=== PATIENT | male | born 1995 | race Caucasian/White ===

== ENCOUNTER 2023-05-27 04:32 | Emergency (ER) | payer OTHER ==
[2023-05-27] MEDS ORDERED: KETOROLAC 30 MG/ML VIAL IVP STA (04:50)
[2023-05-27] MEDS ORDERED: SODIUM CHLORIDE 0.9% 1,000 ML IV STA (04:50)
[2023-05-27] MEDS ORDERED: ONDANSETRON 4 MG/2 ML VIAL IVP STA (04:50)
[2023-05-27] MEDS ORDERED: MORPHINE 2 MG/ML CARPUJECT IVP STA (04:56)
[2023-05-27 05:28] LABS: BASOPHILS # (AUTO) 0.1 10^3/uL (0.0-0.1); BASOPHILS % (AUTO) 1.5 %; EOSINOPHILS # (AUTO) 0.4 10^3/uL (0.0-0.7); EOSINOPHILS % (AUTO) 5.7 %; HCT - HEMATOCRIT 43.7 % (42.0-52.0); HGB - HEMOGLOBIN 15.6 g/dL (14.0-18.0); LYMPHOCYTES # (AUTO) 3.3 10^3/uL (1.5-3.5); LYMPHOCYTES % (AUTO) 44.5 %; MEAN CORPUSCULAR HEMOGLOBIN 31.3 pg (27.0-31.0); MEAN CORPUSCULAR HGB CONC 35.7 g/dL (32.0-36.0); MEAN CORPUSCULAR VOLUME 87.6 fL (80.0-94.0); MEAN PLATELET VOLUME 9.6 fL (7.4-11.4); MONOCYTES # (AUTO) 0.5 10^3/uL (0.0-1.0); MONOCYTES % (AUTO) 7.3 %; NEUTROPHILS % (AUTO) 40.7 %; PLT - PLATELET COUNT 297 10^3/uL (130-450); RED BLOOD COUNT 4.99 10^6/uL (4.70-6.10); RED CELL DISTRIBUTION WIDTH 12.3 % (12.0-15.0); WHITE BLOOD COUNT 7.4 x10^3/uL (4.8-10.8)
[2023-05-27 05:53] LABS: ALBUMIN 4.9 g/dL (3.2-5.5); ALBUMIN/GLOBULIN RATIO 1.9 (1.0-2.2); BILIRUBIN,TOTAL 0.7 mg/dL (0.2-1.0); CALCIUM 9.6 mg/dL (8.5-10.3); CREATININE 0.9 mg/dL (0.6-1.3); POTASSIUM 3.5 mmol/L (3.5-4.5); TOTAL PROTEIN 7.5 g/dL (6.4-8.9)
[2023-05-27] MEDS ORDERED: iohexoL-300 100 ML VIAL IVP ONE (06:34)
--- NOTE | 2023-05-27 08:41 | CT Report ---
PROCEDURE: ABDOMEN/PELVIS W INDICATIONS: RT flank pain CONTRAST: 100 ML OMNI 300 TECHNIQUE: After the administration of IV contrast, 5 mm thick sections acquired from the diaphragms to the symp hysis. 5 mm thick coronal and sagittal reformats were acquired. For radiation dose reduction, the f ollowing was used: automated exposure control, adjustment of mA and/or kV according to patient size. COMPARISON: Ultrasound abdomen, 05/27/2023 FINDINGS: Image quality: Excellent. Lung bases and heart: Unremarkable. Liver: No solid mass. Gallbladder and biliary tree: Mildly distended. Question small gallstones. No intrahepatic biliary di lation. Spleen: No splenomegaly. Pancreas: No pancreatic ductal dilation. Adrenals: No adrenal nodule. Kidneys and ureters: No hydronephrosis. No renal cystic lesion which requires follow up. No solid mas s. Bowel and peritoneum: No bowel distension. No pathologic free fluid. Normal appendix. The proximal sm all bowel loops are distended measuring up to 3.3 cm in caliber with mild small bowel wall thickening . No transitional point is identified. Lymph nodes: No central or retroperitoneal adenopathy. Vessels: No infrarenal aortic aneurysm. PELVIS Reproductive organs: Unremarkable. Bladder: No abnormal wall thickening, accounting for underdistension. Pelvic lymph nodes: No pelvic adenopathy by size criteria. Bones: No aggressive osseous abnormality. Other: No significant ventral or inguinal hernia. IMPRESSION: 1. The proximal small bowel loops are mildly dilated with associated mild wall thickening. No transit ional point is present. The CT findings suggest nonspecific enteritis. 2. Distended gallbladder. Question gallstones. If clinically indicated, consider ultrasound HIDA scan for further evaluation. No significant discrepancy with the preliminary interpretation. Reviewed by: Bryant Lucas MD on 05/27/2023 8:39 AM PDT Approved by: Bryant Lucas MD on 05/27/2023 8:39 AM PDT Station ID: [id number]
--- NOTE | 2023-05-27 08:43 | Ultrasound Report ---
PROCEDURE: Abdomen Limited INDICATIONS: Evaluation for cholecystitis, RUQ PAIN TECHNIQUE: Real-time focused scanning was performed of the abdomen, with image documentation. COMPARISONS: CT abdomen and pelvis, 05/27/2023. FINDINGS: Liver: Liver is normal in size and homogeneous in echotexture. Gallbladder: Mildly distended. There is gallbladder sludge. A nonmobile stone seen within the gallbla dder neck measuring 1.3 cm. Bladder wall thickness is normal. No pericholecystic progression or sonog raphic Herrera sign. Biliary ducts: Intrahepatic bile ducts are non-dilated. Extrahepatic bile duct caliber measures 5.4 mm. Normal is 6-7 mm or less in diameter, or 10 mm or less post-cholecystectomy. Pancreas: Obscured by overlying bowel gas. Right kidney: Normal in size and echotexture. Right kidney measures 11.9 cm long. No hydronephrosis or nephrolithiasis. No solid masses. No complex renal cystic lesions which require follow-up. Miscellaneous: No free abdominal fluid. IMPRESSION: 1. Cholelithiasis. There is a nonmobile gallstone in the gallbladder neck. If there is clinical suspi cion for acute cholecystitis, consider HIDA scan for further evaluation. Reviewed by: Bryant Lucas MD on 05/27/2023 8:42 AM PDT Approved by: Bryant Lucas MD on 05/27/2023 8:42 AM PDT Station ID: [id number]
--- NOTE | 2023-05-27 09:10 | ED Physician Documentation ---
ED Addendum - Addendum Addendum: 05/27/23 09:08 The patient is without pain at change of shift. Ultrasound was being performed. The ultrasound is showing gallstone in the bladder gallbladder neck with some distention. No wall thickening or pericholecystic fluid. The patient's labs are good without any elevation of the LFTs nor alk phos. White count is normal. Again he is without pain at this time. His pain episode sounds consistent with gallbladder colic however and given the stone in the neck, it seems predictable to be recurrent. As such I will prescribe him some medication to help with pain episodes and refer him to general surgery offices. At this point it does not seem emergent. However it does seem urgent in the sense of recurring episodes with a bad episode now and the ultrasound looking predictable to be recurrent. Disposition the patient discharged home in stable condition Disposition diagnoses: 1. Right upper quadrant abdominal pain, severe 2. Gallbladder colic 3. Gallstones with gallbladder distention
[2023-05-27 09:40] VITALS: BP 102/70; O2SAT 100
--- NOTE | 2023-06-07 03:01 | ED Physician Documentation ---
History of Present Illness - Stated complaint Stated Complaint: SIDE PX - Chief complaint Chief Complaint: Abd Pain - Additonal information Additional information: Pt 27 yo presenting with abdominal pain. RUQ and epigastrium pain for last six hours. Associated nausea without vomiting. One similar episode of pain two days ago. No association with food. No fever, known sick contacts, previous surgeries. Review of Systems Constitutional: denies: Fever Eyes: denies: Loss of vision Ears: denies: Loss of hearing Nose: denies: Rhinorrhea / runny nose Throat: denies: Dental pain / toothache Cardiac: denies: Chest pain / pressure GI: reports: Abdominal Pain, Nausea : denies: Dysuria PD PAST MEDICAL HISTORY - Past Medical History Past Medical History: No - Past Surgical History Past Surgical History: No - Present Medications Home Medications: Ambulatory Orders Medication Instructions Recorded Confirmed Dicyclomine [Bentyl] 10 mg PO QID PRN #20 cap 05/27/23 HYDROcod/ACETAM 5/325 [[place] 5/325] 1 ea PO Q6H PRN #10 tablet 05/27/23 Ondansetron Odt [Zofran] 4 mg TL Q6H PRN #10 tablet 05/27/23 - Allergies Allergies/Adverse Reactions: Allergies Allergy/AdvReac Type Severity Reaction Status Date / Time No Known Drug Allergies Allergy Verified 05/27/23 04:48 - Social History Does the pt smoke?: No Smoking Status: Never smoker Does the pt drink ETOH?: Yes ETOH Use: Beer, Liquor Does the pt have substance abuse?: No - Immunizations Immunizations are current?: Yes - POLST Patient has POLST: No PD ED PE NORMAL - Vitals Vital signs reviewed: Yes - General General: Alert and oriented X 3 - HEENT HEENT: Atraumatic - Neck Neck: Supple, no meningeal sign - Cardiac Cardiac: RRR - Respiratory Respiratory: No respiratory distress - Abdomen Abdomen: Normal bowel sounds, Soft, Non distended, Other (RUQ TTP) - Male Male : Deferred - Rectal Rectal: Deferred - Derm Derm: Normal color - Extremities Extremities: No deformity - Neuro Neuro: Alert and oriented X 3, clothing sorter 2-12 intact, No motor deficit - Psych Psych: Normal mood Results - Vitals Vitals: Oxygen O2 Source Room air - Labs Labs: Laboratory Tests 05/27/23 05/27/23 04:57 04:57 WBC 7.4 RBC 4.99 Hgb 15.6 Hct 43.7 MCV 87.6 MCH 31.3 H MCHC 35.7 RDW 12.3 Plt Count 297 MPV 9.6 Neut # (Auto) 3.0 Lymph # (Auto) 3.3 [place] # (Auto) 0.5 Eos # (Auto) 0.4 Baso # (Auto) 0.1 Absolute Nucleated RBC 0.00 Nucleated RBC % 0.0 Sodium 137 Potassium 3.5 Chloride 104 Carbon Dioxide 25 Anion Gap 8.0 BUN 12 Creatinine 0.9 Estimated GFR (MDRD) 100 Glucose 146 H Calcium 9.6 Total Bilirubin 0.7 AST 15 ALT 11 Alkaline Phosphatase 68 Total Protein 7.5 Albumin 4.9 Globulin 2.6 Albumin/Globulin Ratio 1.9 Lipase 24 PD Medical Decision Making - ED course Complexity details: reviewed results, re-evaluated patient, considered differential, d/w patient ED course: PT 27 presenting with RUQ abd pain. TTP of RUQ without signs of peritonitis. Labs generally reassuring. No signs billiary obstruction or acute pancreatitis. CT with distention of gallbladder. US pending. Pt given medication for pain control. will sign out to oncoming physician pending US results. Please see their documentation for further detail. Departure - Departure Disposition: 01 Home, Self Care Clinical Impression: Right upper quadrant abdominal pain, Gallbladder colic, Gallstone Instructions: ED Gallstone W Biliary Colic Follow-Up: Evy Dougherty MD [Provider Admit Priv/Credential] - Ton Cagle MD [Provider Admit Priv/Credential] - Prescriptions: Dicyclomine [Bentyl] 10 mg PO QID PRN #20 cap PRN Reason: Abdominal Pain HYDROcod/ACETAM 5/325 [[place] 5/325] 1 ea PO Q6H PRN #10 tablet PRN Reason: Pain Ondansetron Odt [Zofran] 4 mg TL Q6H PRN #10 tablet PRN Reason: Nausea / Vomiting Comments: Liquids only if for this morning and early afternoon. Nonfat/low-fat diet until follow-up at least. Your ultrasound and CT scan do show a gallstone in the gallbladder neck and a some swelling of the gallbladder. No signs of early infection or inflammation per se. Presume some swelling and spasming of the gallbladder. With the gallstone in its position, its likely there may be recurring episodes if gallbladder stimulated. Hence the low-fat diet. It would be good to consult with general surgery about indications for gallbladder surgery etc. Call today for an appointment. The provided to your office numbers so whomever can get to see you. I would presume follow-up later this week. Meanwhile if you do have recurrent episodes, ondansetron if needed for nausea, dicyclomine for gallbladder spasms and add hydrocodone if needed for worse pain. I sent new prescription to [facility]. Off work today possibly tomorrow as needed. Return to the ER if another episode of pain unrelieved by the medications at home. I am prescribing a short course of narcotic pain medication for you. These are potentially dangerous and addictive medications that should be used carefully. These medications may constipate you. Take an [id number] stool softener such as docusate twice daily with plenty of water while taking these medications. If you go 24 hours without a bowel movement, take [id number] MiraLAX, per package instructions. Do not drink or drive while taking these medications. If you received narcotic or sedating medications while in the emergency department do not drive for 24 hours. Store this medication in a safe, secure place and out of reach of children. It is a violation of federal law to give or sell this medication to another person or to use in a manner other than prescribed. The ED will not refill narcotic prescriptions, including prescriptions lost or stolen. You can dispose of unwanted medications at the [facility] office or at several pharmacies such as [facility]. Forms: PCP List, Activity restrictions Discharge Date/Time: 05/27/23 09:33
== END 2023-05-27 09:33 | disposition home or self-care (01) ==
LOC: ED 04:32
DX: R10.11 Right upper quadrant pain (principal); K80.20 Calculus of gallbladder without cholecystitis without obstruction
CPT/HCPCS: 36415; 74177; 76705; 80053; 83690; 85025; 96374; 96375; 99284; Q9967

== ENCOUNTER 2024-01-03 08:13 | Emergency (ER) | payer OTHER ==
[2024-01-03 08:20] VITALS: O2SAT 100
--- NOTE | 2024-01-03 08:25 | ED Physician Documentation ---
PD HPI ABD PAIN - Stated complaint Stated Complaint: ABD PX - Chief complaint Chief Complaint: Abd Pain - History obtained from History obtained from: Patient - History of Present Illness Quality: Cramping, Aching, Pain Location: RUQ, Epigastric Worsened by: Eating Associated symptoms: Nausea, Vomiting. No: Fever, Hematemesis, Diarrhea Similar symptoms before: Diagnosis (similar episdoe months ago with dx gallstones. Resolved with meds in ER and felt better within 1-2 days so did not follow up with surgery, which is not unreasonable given just first episodes at the time.) Review of Systems Constitutional: denies: Fever, Chills PD PAST MEDICAL HISTORY - Past Medical History Past Medical History: Yes Respiratory: None Neuro: None GI: Cholelithiasis Other Past Medical History: gallstones - Past Surgical History Past Surgical History: No - Present Medications Home Medications: Ambulatory Orders Medication Instructions Recorded Confirmed Dicyclomine [Bentyl] 10 mg PO QID PRN #20 cap 05/27/23 HYDROcod/ACETAM 5/325 [[place] 5/325] 1 ea PO Q6H PRN #10 tablet 05/27/23 Ondansetron Odt [Zofran] 4 mg TL Q6H PRN #10 tablet 05/27/23 Dicyclomine [Bentyl] 10 mg PO QID PRN #12 cap 01/03/24 Famotidine [Pepcid] 20 mg PO DAILY #20 tablet 01/03/24 HYDROcod/ACETAM 5/325 [[place] 5/325] 1 ea PO Q6H PRN #12 tablet 01/03/24 Ondansetron Odt [Zofran] 4 mg TL Q6H PRN #10 tablet 01/03/24 - Allergies Allergies/Adverse Reactions: Allergies Allergy/AdvReac Type Severity Reaction Status Date / Time No Known Drug Allergies Allergy Verified 01/03/24 08:19 - Social History Does the pt smoke?: No Smoking Status: Never smoker Does the pt drink ETOH?: Yes Does the pt have substance abuse?: No - Immunizations Immunizations are current?: Yes - POLST Patient has POLST: No PD ED PE NORMAL - Vitals Vital signs reviewed: Yes - General General: Alert and oriented X 3, Well developed/nourished, Other (appears very uncomfortable in signficant pain RUQ abd. ) - Cardiac Cardiac: RRR, No murmur - Respiratory Respiratory: No respiratory distress, Clear bilaterally - Abdomen Abdomen: Normal bowel sounds, Soft, Non distended, No organomegaly, Other (tender with notble guarding ruq) Results - Vitals Vitals: Oxygen O2 Source Room air - Labs Labs: Laboratory Tests 01/03/24 01/03/24 01/03/24 08:28 08:28 08:28 WBC 6.3 RBC 5.02 Hgb 15.5 Hct 44.1 MCV 87.8 MCH 30.9 MCHC 35.1 RDW 12.5 Plt Count 253 MPV 9.0 Neut # (Auto) 3.3 Lymph # (Auto) 2.2 [place] # (Auto) 0.4 Eos # (Auto) 0.3 Baso # (Auto) 0.1 Absolute Nucleated RBC 0.00 Nucleated RBC % 0.0 Sodium 140 Potassium 3.6 Chloride 103 Carbon Dioxide 30 Anion Gap 7.0 BUN 14 Creatinine 0.9 Estimated GFR (MDRD) 99 Glucose 120 H Calcium 9.7 Magnesium 1.7 Total Bilirubin 0.8 AST 14 ALT 14 Alkaline Phosphatase 81 Total Protein 7.0 Albumin 4.7 Globulin 2.3 Albumin/Globulin Ratio 2.0 Lipase 18 PD Medical Decision Making - ED course Complexity details: reviewed results (LFTs and lipase normal. Pain improved with fluids and meds including toradol, zofran and dilaudid. Recheck abd much less tender to almost resolved. Presume spasm without inflammation. Shared decision to defer imaging. ), considered differential (pain c/w gallbladder location and feels similar to a prior GB spasmb ut few years ago and no problems with eating in the interim. ), d/w patient Departure - Departure Disposition: 01 Home, Self Care Clinical Impression: Acute upper abdominal pain, Recurrent biliary colic Condition: Stable Record reviewed to determine appropriate education?: Yes Instructions: ED Gallstone W Biliary Colic Follow-Up: [facility] [Provider Group] [facility] [Provider Group] Prescriptions: Dicyclomine [Bentyl] 10 mg PO QID PRN #12 cap PRN Reason: Abdominal Pain HYDROcod/ACETAM 5/325 [[place] 5/325] 1 ea PO Q6H PRN #12 tablet PRN Reason: Pain Famotidine [Pepcid] 20 mg PO DAILY #20 tablet Ondansetron Odt [Zofran] 4 mg TL Q6H PRN #10 tablet PRN Reason: Nausea / Vomiting Comments: Given the location of the pain and the character and known gallstones with this episode being similar to your previous 1 last May, we will presume that this was a spasming of the gallbladder. Your blood test including the white count and ones affiliated with the liver and pancreas were normal. Your abdominal pain has decreased reasonably well. As such I do not believe it has got an acutely inflamed or infected such that your gallbladder needs surgery urgently. However that can change if you are hav ing increased pain again despite medications or you start having repetitive vomiting, increased pain, certainly any fevers, other concerns. Return if needed. Otherwise home with liquids only for today for hydration. Start bland food without any fatty content later today if tolerated and then into tomorrow. Avoid fatty foods of other than your days to week or 2. Follow-up with your primary care. It could make sense to follow-up with surgery to have a discussion about recurrent gallbladder symptoms. Return if needed. I sent new prescriptions to preferred pharmacy. These include ondansetron for nausea, and acid reducing medicine famotidine daily for the next few weeks. Also prescriptions for dicyclomine which is an antispasmodic that can help for some mild pains of gallbladder spasms. Add hydrocodone/acetaminophen if needed for worse pains. I am prescribing a short course of narcotic pain medication for you. These are potentially dangerous and addictive medications that should be used carefully. These medications may constipate you. Take an shwx-bte-uekzjbv stool softener such as docusate twice daily with plenty of water while taking these medications. If you go 24 hours without a bowel movement, take [id number] MiraLAX, per package instructions. Do not drink or drive while taking these medications. If you received narcotic or sedating medications while in the emergency department do not drive for 24 hours. Store this medication in a safe, secure place and out of reach of children. It is a violation of federal law to give or sell this medication to another person or to use in a manner other than prescribed. The ED will not refill narcotic prescriptions, including prescriptions lost or stolen. You can dispose of unwanted medications at the [facility]'s office or at several pharmacies such as [facility]. Forms: PCP List, Activity restrictions Discharge Date/Time: 01/03/24 11:10
[2024-01-03 08:34] LABS: BASOPHILS # (AUTO) 0.1 10^3/uL (0.0-0.1); BASOPHILS % (AUTO) 1.6 %; EOSINOPHILS # (AUTO) 0.3 10^3/uL (0.0-0.7); EOSINOPHILS % (AUTO) 4.7 %; HCT - HEMATOCRIT 44.1 % (42.0-52.0); HGB - HEMOGLOBIN 15.5 g/dL (14.0-18.0); LYMPHOCYTES # (AUTO) 2.2 10^3/uL (1.5-3.5); LYMPHOCYTES % (AUTO) 35.1 %; MEAN CORPUSCULAR HEMOGLOBIN 30.9 pg (27.0-31.0); MEAN CORPUSCULAR HGB CONC 35.1 g/dL (32.0-36.0); MEAN CORPUSCULAR VOLUME 87.8 fL (80.0-94.0); MONOCYTES # (AUTO) 0.4 10^3/uL (0.0-1.0); MONOCYTES % (AUTO) 6.8 %; NEUTROPHILS # (AUTO) 3.3 10^3/uL (1.5-6.6); NEUTROPHILS % (AUTO) 51.5 %; PLT - PLATELET COUNT 253 10^3/uL (130-450); RED BLOOD COUNT 5.02 10^6/uL (4.70-6.10); RED CELL DISTRIBUTION WIDTH 12.5 % (12.0-15.0); WHITE BLOOD COUNT 6.3 x10^3/uL (4.8-10.8)
[2024-01-03 08:47] LABS: ALBUMIN 4.7 g/dL (3.2-5.5); BILIRUBIN,TOTAL 0.8 mg/dL (0.2-1.0); CALCIUM 9.7 mg/dL (8.5-10.3); CREATININE 0.9 mg/dL (0.6-1.3); POTASSIUM 3.6 mmol/L (3.5-4.5)
[2024-01-03] MEDS: SODIUM CHLORIDE 0.9% 1,000 ML IV STA (08:48)
[2024-01-03] MEDS: ONDANSETRON 4 MG/2 ML VIAL IVP STA (09:16)
[2024-01-03] MEDS: KETOROLAC 15 MG/ML VIAL IVP STA (09:16)
[2024-01-03] MEDS: HYDROmorphone 1 MG/ML CARPUJECT IVP STA (09:16)
[2024-01-03] MEDS: MAG HYDROX/AL HYDROX/SIMETH 30 ML UDC PO STA (10:57)
[2024-01-03] MEDS: HYDROmorphone 0.5 MG/0.5 ML SYRINGE IVP STA (10:58)
[2024-01-03 11:17] VITALS: BP 123/74
== END 2024-01-03 11:10 | disposition home or self-care (01) ==
LOC: ED 08:13
DX: K80.70 Calculus of gallbladder and bile duct without cholecystitis without obstruction (principal)
CPT/HCPCS: 36415; 80053; 83690; 83735; 85025; 96374; 96376; 99283; 99284; A9270; J1170